=== PATIENT | female | born 2000 | race African-American/Black ===

== ENCOUNTER 2018-02-19 17:08 | Emergency (ER) | payer OTHER ==
[~2018-02-19] VITALS: Ht 162.6 cm; Wt 81.7 kg
[2018-02-19 17:26] LABS: URINE BILIRUBIN NEGATIVE (Negative); URINE BLOOD NEGATIVE (Negative); URINE CLARITY CLEAR; URINE COLOR YELLOW; URINE GLUCOSE-RANDOM* NEGATIVE (Negative); URINE KETONES NEGATIVE (Negative); URINE LEUKOCYTES-REFLEX NEGATIVE (Negative); URINE NITRITE-REFLEX NEGATIVE (Negative); URINE PROTEIN (DIPSTICK) NEGATIVE (Negative); URINE UROBILINOGEN 0.2 E.U./dl (0.2-1.0)
[2018-02-19 18:04] LABS: ABSOLUTE NEUTROPHILS 4.4 thou/uL (1.4-8.2); BASOPHILS 0.6 % (0.0-2.0); EOSINOPHILS 3.7 % (0.0-3.0); HEMATOCRIT 39.3 % (37.0-47.0); HEMOGLOBIN 13.1 gm/dL (12.0-15.0); LYMPHOCYTES 30.1 % (24.0-44.0); MCH 29.4 pg (26.0-34.0); MCHC 33.4 g/dL (28.0-37.0); MONOCYTES 10.1 % (1.0-8.0); PLATELET COUNT 358 thou/uL (150-400); POLYS 55.5 % (36.0-66.0); RBC 4.46 mil/uL (4.20-5.00); RDW 13.1 % (10.5-14.5); WBC 7.9 thou/uL (4.0-11.0)
[2018-02-19 18:07] LABS: CALCIUM 9.3 mg/dL (8.5-10.1); CREATININE 0.8 mg/dL (0.6-1.0); POTASSIUM 3.8 mmol/L (3.5-5.1)
[2018-02-19] MEDS ORDERED: GUAIFEN-CODEINE10 ML PO (19:28)
[2018-02-19] MEDS ORDERED: MOBIC15 MG PO (19:28)
[2018-02-19 19:57] VITALS: BP 121/59
== END 2018-02-19 19:59 | disposition home or self-care (01) ==
LOC: ER 17:08
PROVIDERS: Emergency Medicine
DX: J06.9 Acute upper respiratory infection, unspecified (principal); R51 Headache; Z87.442 Personal history of urinary calculi

== ENCOUNTER 2018-06-07 21:22 | Emergency (ER) | payer OTHER ==
[~2018-06-07] VITALS: Ht 162.6 cm; Wt 86.2 kg
[~2018-06-07 21:22] MED LIST: GUAIFEN-CODEINE10 ML PO; MOBIC15 MG PO
[2018-06-07] MEDS ORDERED: NOHOMEMEDICATIONS (21:32)
[2018-06-07] MEDS ORDERED: PROMETH-CODEIN 65 ML PO (22:40)
[2018-06-07] MEDS ORDERED: ZOFRAN ODT4 MG PO (22:40)
[2018-06-07] MEDS ORDERED: IBUPROFEN 600600 M1 PO (22:40)
[2018-06-07 23:01] VITALS: BP 109/74
== END 2018-06-07 23:00 | disposition home or self-care (01) ==
LOC: ER 21:22
DX: J06.9 Acute upper respiratory infection, unspecified (principal); R11.2 Nausea with vomiting, unspecified; Z87.442 Personal history of urinary calculi

== ENCOUNTER 2018-10-28 12:47 | Emergency (ER) | payer OTHER ==
[~2018-10-28] VITALS: Ht 154.9 cm; Wt 95.3 kg
[~2018-10-28 12:47] MED LIST changes: +IBUPROFEN 600600 M1 PO; +NOHOMEMEDICATIONS; +PROMETH-CODEIN 65 ML PO; +ZOFRAN ODT4 MG PO
[2018-10-28 13:14] VITALS: BP 120/63
[2018-10-28 13:45] LABS: URINE BILIRUBIN NEGATIVE (Negative); URINE BLOOD 3+ (Negative); URINE CLARITY CLEAR; URINE COLOR YELLOW; URINE GLUCOSE-RANDOM* NEGATIVE (Negative); URINE KETONES NEGATIVE (Negative); URINE LEUKOCYTES-REFLEX NEGATIVE (Negative); URINE NITRITE-REFLEX NEGATIVE (Negative); URINE PROTEIN (DIPSTICK) NEGATIVE (Negative); URINE SPECIFIC GRAVITY >= 1.030 (1.005-1.035); URINE UROBILINOGEN 0.2 E.U./dl (0.2-1.0)
[2018-10-28 14:00] LABS: AMORPHOUS URATES Many /LPF (None Seen); BACTERIA-REFLEX None Seen /HPF (None Seen); CASTS None Seen /LPF (None Seen); SQUAMOUS None Seen /LPF (0-3); URINE WBC-REFLEX 0-5 Rare /HPF (0-5)
[2018-10-28 14:14] LABS: ABSOLUTE NEUTROPHILS 2.4 thou/uL (1.4-8.2); BASOPHILS 0.9 % (0.0-2.0); EOSINOPHILS 1.2 % (0.0-3.0); HEMATOCRIT 38.4 % (37.0-47.0); HEMOGLOBIN 12.8 gm/dL (12.0-15.0); LYMPHOCYTES 39.1 % (24.0-44.0); MCH 29.5 pg (26.0-34.0); MCHC 33.2 g/dL (28.0-37.0); MCV 88.8 fL (80.0-100.0); MONOCYTES 8.8 % (1.0-8.0); PLATELET COUNT 320 thou/uL (150-400); RBC 4.33 mil/uL (4.20-5.00); RDW 13.2 % (10.5-14.5); WBC 4.7 thou/uL (4.0-11.0)
[2018-10-28 14:22] LABS: CALCIUM 9.4 mg/dL (8.5-10.1); CREATININE 0.8 mg/dL (0.6-1.0); POTASSIUM 4.1 mmol/L (3.5-5.1)
[2018-10-28] MEDS ORDERED: NAPROSYN500 MG PO (15:05)
== END 2018-10-28 15:52 | disposition home or self-care (01) ==
LOC: ER 12:47
PROVIDERS: Physician Assistant
DX: N94.6 Dysmenorrhea, unspecified (principal); N92.0 Excessive and frequent menstruation with regular cycle; E28.2 Polycystic ovarian syndrome; Z87.442 Personal history of urinary calculi

== ENCOUNTER 2020-02-09 10:52 | Emergency (ER) | payer OTHER ==
[~2020-02-09] VITALS: Ht 165.1 cm; Wt 102.1 kg
[~2020-02-09 10:52] MED LIST changes: +NAPROSYN500 MG PO
[2020-02-09 13:09] VITALS: BP 119/61
== END 2020-02-09 13:09 ==
LOC: ER 10:52
DX: J06.9 Acute upper respiratory infection, unspecified (principal); Z20.828 Contact with and (suspected) exposure to other viral communicable diseases; R43.8 Other disturbances of smell and taste; R19.7 Diarrhea, unspecified; Z87.442 Personal history of urinary calculi; Z79.899 Other long term (current) drug therapy